=== PATIENT | female | born 1985 | race Caucasian/White ===

== ENCOUNTER 2018-06-24 09:39 | Emergency (ER) | payer BC, OTHER ==
--- OUTSIDE RECORDS SUMMARY | 2018-06-24 09:55 | XMS REPORT | Continuity of Care Document ---
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 Payers Type Date Identification Numbers Payment Provider Subscriber Policy Number: [id number] BS Of BIBI Leigha Costello PayID: [id number] [address] [address] [place] [address] Advance Directives Description No Information Available Problems Description No Information Family History Description No Information Available Social History Type Date Description Comments Sex Unknown Tobacco Use Start: Unknown Patient has never smoked Smoking Status Reviewed: 04/25/18 Patient has never smoked Allergies, Adverse Reactions, Alerts Date Description Reaction Status Severity Comments 04/25/2018 Sulfa Antibiotics Active Medications Medication Date Status Form Strength Qnty SIG Indications Ordering Provider Omeprazole Active Capsules 40mg 30caps [address] by marbin Taveras, daily 30 DO minutes before meals. Ibuprofen 00/00/0 Active Tablets 800mg Unknown 000 Polyethylene 00/00/0 Active Powder 3350NF Cavanaugh, Glycol 3350 000 MD Ira Immunizations Description No Information Available Vital Signs Date Vital Result Comment 04/25/2018 1:39pm Height 68 inches 5'8" Weight 268.00 lb BP Systolic 139 mmHg BP Diastolic 83 mmHg Heart Rate 69 /min BMI (Body Mass Index) 40.7 kg/m2 Results Test Date Facility Test Result H/L Range Note Laboratory test 05/21/2018 [facility] [place] Clotest SEE RESULT 1, 2 finding BELOW Laboratory test 05/21/2018 [facility] [place] Surgical SEE RESULT 3, 4 finding Pathology BELOW 1 [id number] SEE RESULT BELOW Name: LEIGHA COSTELLO : [address]: Parth Taveras DO Acct: [id number] Unit: [id number] AGE: 33 Location: [facility] Re05/21/18 SEX: F Status: DEP REF SPEC: [id number] PIEDAD: 05/21/18-1149 [facility] DR: Parth Taveras DO REQ: [id number] RECD: 05/21/18 STATUS: HIREN MCALLISTER DR: Stacia Silva TETRYL NITRATOR OPERATOR _ SOURCE: GAS ANTRUM SPDESC: ORDERED: Clotest COMMENTS: [id number] Procedure Result Reported Site Clotest Final 05/22/18- 825 ML Clotest Negative * ML - Main Lab . END OF REPORT DEPARTMENT OF PATHOLOGY, [address] [place] [address] Cedric Yanes M.D. Director [facility] # [id number] 3 [id number] SEE RESULT BELOW Name: LEIGHA COSTELLO José : [address]: Parth Taveras DO Acct: [id number] Unit: [id number] AGE: 33 Location: [facility] Re05/21/18 SEX: F Status: DEP REF SPEC: [id number] PIEDAD: 05/21/18-1133 [facility] DR: Parth Taveras DO REQ: [id number] RECD: 05/21/18 STATUS: JANET MCALLISTER DR: Teodoro Silva TETRYL NITRATOR OPERATOR _ ORDERED: LEVEL 4/3 COMMENTS: [id number] FINAL DIAGNOSIS 1. Small bowel, duodenum, biopsy: -- Small bowel mucosa with normal villous architecture and no significant pathologic abnormality. 2. Stomach, body, biopsies: -- Gastric fundic gland mucosa with mild diffuse chronic inflammation. -- No active gastritis nor Helicobacter pylori-like organisms are identified. 3. Distal esophagus, biopsy: -- Gastroesophageal transition zone mucosa with moderate reflux esophagitis. -- Gastric Cardia-type mucosa with focal acute and chronic inflammation. -- No goblet cell/intestinal metaplasia identified Comment: Immunochemical stains for Helicobacter pylori-like organisms are pending on parts 2 and 3 and will be reported in an addendum. CLINICAL HISTORY Pre-bariatric; reflux CONTINUED ON NEXT PAGE DEPARTMENT OF PATHOLOGY, [address] [place] [address] Cedric Yanes M.D. Director [facility] # [id number] RUN DATE: 05/22/18 [facility] LAB LIVE PAGE 2 Patient: SIMONA COSTELLOMARGARITA Kumar [id number] (Continued) PRE-OPERATIVE DIAGNOSIS (Continued) PRE-OPERATIVE DIAGNOSIS 1. Rule out celiac, 2. Rule out gastritis POST-OPERATIVE DIAGNOSIS EGD: esophagus - possible Ramirez?s; gastroesophageal junction 40 cm; sliding hiatal hernia; gastric - gastritis biopsy/ ASIA test; duodenum - normal, biopsy GROSS DESCRIPTION 1. The specimen is received in formalin labeled, Biopsy Duodenum, and consists of a 0.5 x 0.3 x 0.3 cm speckled sorto-pink irregular to polypoid soft tissue fragment, which is entirely submitted in one cassette. 2. The specimen is received in formalin labeled, Biopsy Gastric Body, and consists of two sorto red irregular to polypoid soft tissue fragments averaging 0.5 x 0.3 x 0.2 cm, which are entirely submitted in one cassette. 3. The specimen is received in formalin labeled, Biopsy Distal Esophagus, and consists of two sorto-pink irregular to polypoid soft tissue fragments measuring 0.5 x 0.3 x 0.2 cm and 0.7 by up to 0.2 x 0.1 cm, which are entirely submitted in one cassette Signed by and Reported on: Cedric Yanes MD 1024 END OF REPORT DEPARTMENT OF PATHOLOGY, [address] [place] [address] Cedric Yanes M.D. Director [facility] # [id number] SEE RESULT BELOW Name: LEIGHA COSTELLO : [address]: Parth Taveras DO Acct: [id number] Unit: [id number] AGE: 33 Location: [facility] Re05/21/18 SEX: F Status: DEP REF SPEC: [id number] PIEDAD: 05/21/[address]: Parth Taveras DO REQ: [id number] RECD: 05/21/18 STATUS: JANET MCALLISTER DR: Teodoro Silva TETRYL NITRATOR OPERATOR _ ORDERED: LEVEL 4/3 COMMENTS: [id number] FINAL DIAGNOSIS 1. Small bowel, duodenum, biopsy: -- Small bowel mucosa with normal villous architecture and no significant pathologic abnormality. 2. Stomach, body, biopsies: -- Gastric fundic gland mucosa with mild diffuse chronic inflammation. -- No active gastritis nor Helicobacter pylori-like organisms are identified. 3. Distal esophagus, biopsy: -- Gastroesophageal transition zone mucosa with moderate reflux esophagitis. -- Gastric Cardia-type mucosa with focal acute and chronic inflammation. -- No goblet cell/intestinal metaplasia identified Comment: Immunochemical stains for Helicobacter pylori-like organisms are pending on parts 2 and 3 and will be reported in an addendum. CLINICAL HISTORY Pre-bariatric; reflux CONTINUED ON NEXT PAGE DEPARTMENT OF PATHOLOGY, [address] [place] [address] Cedric Yanes M.D. Director [facility] # [id number] RUN DATE: 05/22/18 [facility] LAB LIVE PAGE 2 Patient: LEIGHA COSTELLO [id number] (Continued) PRE-OPERATIVE DIAGNOSIS (Continued) PRE-OPERATIVE DIAGNOSIS 1. Rule out celiac, 2. Rule out gastritis POST-OPERATIVE DIAGNOSIS EGD: esophagus - possible Ramirez?s; gastroesophageal junction 40 cm; sliding hiatal hernia; gastric - gastritis biopsy/ ASIA test; duodenum - normal, biopsy GROSS DESCRIPTION 1. The specimen is received in formalin labeled, Biopsy Duodenum, and consists of a 0.5 x 0.3 x 0.3 cm speckled sorto-pink irregular to polypoid soft tissue fragment, which is entirely submitted in one cassette. 2. The specimen is received in formalin labeled, Biopsy Gastric Body, and consists of two sorto red irregular to polypoid soft tissue fragments averaging 0.5 x 0.3 x 0.2 cm, which are entirely submitted in one cassette. 3. The specimen is received in formalin labeled, Biopsy Distal Esophagus, and consists of two sorto-pink irregular to polypoid soft tissue fragments measuring 0.5 x 0.3 x 0.2 cm and 0.7 by up to 0.2 x 0.1 cm, which are entirely submitted in one cassette Signed by and Reported on: Cedric Yanes MD 1024 END OF REPORT DEPARTMENT OF PATHOLOGY, [address] [place] [address] Cedric Yanes M.D. Director [facility] # [id number] SEE RESULT BELOW Name: LEIGHA COSTELLO : [address]: Parth Taveras DO Acct: [id number] Unit: [id number] AGE: 33 Location: [facility] Re05/21/18 SEX: F Status: DEP REF SPEC: [id number] PIEDAD: 05/21/18-1132 [facility] DR: Parth Taveras DO REQ: [id number] RECD: 05/21/18 STATUS: JANET MCALLISTER DR: Teodoro Silva TETRYL NITRATOR OPERATOR _ ORDERED: LEVEL 4/3, IMMUNO-FIRST/2 COMMENTS: [id number] Immunohistochemical stains, with appropriately reacting controls, for H. pylori were performed on sections cut from specimen 2 and 3 and are negative for Helicobacter organisms. Addendum Signed (signature on file) Norma Hernández MD 1004 FINAL DIAGNOSIS 1. Small bowel, duodenum, biopsy: -- Small bowel mucosa with normal villous architecture and no significant pathologic abnormality. 2. Stomach, body, biopsies: -- Gastric fundic gland mucosa with mild diffuse chronic inflammation. -- No active gastritis nor Helicobacter pylori-like organisms are identified. 3. Distal esophagus, biopsy: -- Gastroesophageal transition zone mucosa with moderate reflux esophagitis. -- Gastric Cardia-type mucosa with focal acute and chronic inflammation. -- No goblet cell/intestinal metaplasia identified Comment: Immunochemical stains for Helicobacter pylori-like organisms are pending on parts 2 and 3 and will be reported in an addendum. CONTINUED ON NEXT PAGE DEPARTMENT OF PATHOLOGY, [address] [place] [address] Cedric Yanes M.D. Director [facility] # [id number] RUN DATE: 05/23/18 [facility] LAB LIVE PAGE 2 Patient: LEIGHA COSTELLO [id number] (Continued) CLINICAL HISTORY (Continued) CLINICAL HISTORY Pre-bariatric; reflux PRE-OPERATIVE DIAGNOSIS 1. Rule out celiac, 2. Rule out gastritis POST-OPERATIVE DIAGNOSIS EGD: esophagus - possible Ramirez?s; gastroesophageal junction 40 cm; sliding hiatal hernia; gastric - gastritis biopsy/ ASIA test; duodenum - normal, biopsy GROSS DESCRIPTION 1. The specimen is received in formalin labeled, Biopsy Duodenum, and consists of a 0.5 x 0.3 x 0.3 cm speckled sorto-pink irregular to polypoid soft tissue fragment, which is entirely submitted in one cassette. 2. The specimen is received in formalin labeled, Biopsy Gastric Body, and consists of two sorto red irregular to polypoid soft tissue fragments averaging 0.5 x 0.3 x 0.2 cm, which are entirely submitted in one cassette. 3. The specimen is received in formalin labeled, Biopsy Distal Esophagus, and consists of two sorto-pink irregular to polypoid soft tissue fragments measuring 0.5 x 0.3 x 0.2 cm and 0.7 by up to 0.2 x 0.1 cm, which are entirely submitted in one cassette Signed by and Reported on: Cedric Yanes MD 1024 END OF REPORT DEPARTMENT OF PATHOLOGY, [address] [place] [address] Cedric Yanes M.D. Director [facility] # [id number] SEE RESULT BELOW Name: LEIGHA COSTELLO : [address]: Parth Taveras DO Acct: [id number] Unit: [id number] AGE: 33 Location: [facility] Re05/21/18 SEX: F Status: DEP REF SPEC: [id number] PIEDAD: 05/21/18-[address]: Parth Taveras DO REQ: [id number] RECD: 05/21/18 STATUS: JANET MCALLISTER DR: Teodoro Silva TETRYL NITRATOR OPERATOR _ ORDERED: LEVEL 4/3, IMMUNO-FIRST/2 COMMENTS: [id number] Immunohistochemical stains, with appropriately reacting controls, for H. pylori were performed on sections cut from specimen 2 and 3 and are negative for Helicobacter organisms. Addendum Signed (signature on file) Norma Hernández MD 1004 FINAL DIAGNOSIS 1. Small bowel, duodenum, biopsy: -- Small bowel mucosa with normal villous architecture and no significant pathologic abnormality. 2. Stomach, body, biopsies: -- Gastric fundic gland mucosa with mild diffuse chronic inflammation. -- No active gastritis nor Helicobacter pylori-like organisms are identified. 3. Distal esophagus, biopsy: -- Gastroesophageal transition zone mucosa with moderate reflux esophagitis. -- Gastric Cardia-type mucosa with focal acute and chronic inflammation. -- No goblet cell/intestinal metaplasia identified Comment: Immunochemical stains for Helicobacter pylori-like organisms are pending on parts 2 and 3 and will be reported in an addendum. CONTINUED ON NEXT PAGE DEPARTMENT OF PATHOLOGY, [address] [place] [address] Cedric Yanes M.D. Director [facility] # [id number] RUN DATE: 05/23/18 [facility] LAB LIVE PAGE 2 Patient: MANOHARSIMONALEIGHA L [id number] (Continued) CLINICAL HISTORY (Continued) CLINICAL HISTORY Pre-bariatric; reflux PRE-OPERATIVE DIAGNOSIS 1. Rule out celiac, 2. Rule out gastritis POST-OPERATIVE DIAGNOSIS EGD: esophagus - possible Ramirez?s; gastroesophageal junction 40 cm; sliding hiatal hernia; gastric - gastritis biopsy/ ASIA test; duodenum - normal, biopsy GROSS DESCRIPTION 1. The specimen is received in formalin labeled, Biopsy Duodenum, and consists of a 0.5 x 0.3 x 0.3 cm speckled sorto-pink irregular to polypoid soft tissue fragment, which is entirely submitted in one cassette. 2. The specimen is received in formalin labeled, Biopsy Gastric Body, and consists of two sorto red irregular to polypoid soft tissue fragments averaging 0.5 x 0.3 x 0.2 cm, which are entirely submitted in one cassette. 3. The specimen is received in formalin labeled, Biopsy Distal Esophagus, and consists of two sorto-pink irregular to polypoid soft tissue fragments measuring 0.5 x 0.3 x 0.2 cm and 0.7 by up to 0.2 x 0.1 cm, which are entirely submitted in one cassette Signed by and Reported on: Cedric Yanes MD 1024 END OF REPORT DEPARTMENT OF PATHOLOGY, [address] [place] [address] Cedric Yanes M.D. Director [facility] # [id number] Procedures Description No Information Available Encounters Type Date Location Provider Dx Diagnosis Office Visit 04/25/2018 Gastroenterology Parth Taveras, Z01.818 Encounter for other 3:15p [facility] DO preprocedural examination K21.9 Gastro-esophageal reflux disease without esophagitis E66.01 Morbid (severe) obesity due to excess calories K59.00 Constipation, unspecified Z68.41 Body mass index (BMI) 40.0-44.9, adult Plan of Treatment 04/25/2018 - Parth Taveras, DOZ01.818 Encounter for other preprocedural jclvbzabkurK20.9 Gastro-esophageal reflux disease without esophagitisComments: RISKS AND BENEFITS OF THE PROCEDURE WERE DISCUSSED WITH PATIENT.E66.01 Morbid ( severe) obesity due to excess opkamnfnF17.00 Constipation, jvhuvwvmptfR01.41 Body mass index (BMI) 40.0-44.9, adult
--- OUTSIDE RECORDS SUMMARY | 2018-06-24 09:55 | XMS REPORT | Continuity of Care Document ---
:1985 External Reference #:[id number] Author Name Parth Taveras, Address [address] [place] [id number] Care Team Providers Name Role Phone Teodoro Selby MD Care Team Information Periodontal Assistant Unavailable Payers Type Date Identification Numbers Payment Provider Subscriber Policy Number: [id number] BS Of BIBI Leigha Costello PayID: [id number] [address] [address] [place] [address] Advance Directives Description No Information Available Problems [...] Result H/L Range Note Laboratory test 05/21/2018 [facility] [place] Clotest SEE RESULT 1, 2 finding BELOW Laboratory test 05/21/2018 [facility] [place] Surgical SEE RESULT 3, 4 finding Pathology BELOW 1 [id number] SEE RESULT BELOW Name: LEIGHA COSTELLO : [address]: Parth Tavears DO Acct: [id number] Unit: [id number] AGE: 33 Location: [facility] Re05/21/18 SEX: F Status: DEP REF SPEC: [id number] PIEDAD: 05/21/18-[address] [facility] [address]: Parth Taveras DO REQ: [id number] RECD: 05/21/18 STATUS: HIREN MCALLISTER DR: Stacia Silva EMERGENCY MEDCL EMT _ SOURCE: GAS ANTRUM SPDESC: ORDERED: Clotest COMMENTS: [id number] Procedure Result Reported Site Clotest Final 05/22/18- 825 ML Clotest Negative * ML - Main Lab . END OF REPORT DEPARTMENT OF PATHOLOGY, [address] [place] [address] Cedric Yanes M.D. Director [facility] # [id number] 3 [id number] SEE RESULT BELOW Name: LEIGHA COSTELLO José : [address]: Parth Taveras DO Acct: [id number] Unit: [id number] AGE: 33 Location: [facility] Re05/21/18 SEX: F Status: DEP REF SPEC: [id number] PIEDAD: 05/21/18-[address] [facility] [address]: Parth Taveras DO REQ: [id number] RECD: 05/21/18 STATUS: JANET MCALLISTER DR: Teodoro Silva EMERGENCY MEDCL EMT _ ORDERED: LEVEL 4/3 COMMENTS: [id number] FINAL DIAGNOSIS 1. Small bowel, duodenum, biopsy: [...] CONTINUED ON NEXT PAGE DEPARTMENT OF PATHOLOGY, [address] [place] [address] Cedric Yanes M.D. Director [facility] # [id number] RUN DATE: 05/22/18 [facility] LAB LIVE PAGE 2 Patient: SIMONA COSTELLOMARGARITA Kumar [id number] (Continued) PRE-OPERATIVE DIAGNOSIS (Continued) PRE-OPERATIVE DIAGNOSIS 1. [...] 1024 END OF REPORT DEPARTMENT OF PATHOLOGY, [address] [place] [address] Cedric Yanes M.D. Director [facility] # [id number] SEE RESULT BELOW Name: LEIGHA COSTELLO : [address]: Parth Taveras DO Acct: [id number] Unit: [id number] AGE: 33 Location: [facility] Re05/21/18 SEX: F Status: DEP REF SPEC: [id number] PIEDAD: 05/21/[address]: Parth Taveras DO REQ: [id number] RECD: 05/21/18 STATUS: JANET MCALLISTER DR: Teodoro Silva EMERGENCY MEDCL EMT _ ORDERED: LEVEL 4/3 COMMENTS: [id number] FINAL DIAGNOSIS 1. Small bowel, duodenum, biopsy: [...] CONTINUED ON NEXT PAGE DEPARTMENT OF PATHOLOGY, [address] [place] [address] Cedric Yanes M.D. Director [facility] # [id number] RUN DATE: 05/22/18 [facility] LAB LIVE PAGE 2 Patient: LEIGHA COSTELLO [id number] (Continued) PRE-OPERATIVE DIAGNOSIS (Continued) PRE-OPERATIVE DIAGNOSIS 1. [...] 1024 END OF REPORT DEPARTMENT OF PATHOLOGY, [address] [place] [address] Cedric Yanes M.D. Director [facility] # [id number] SEE RESULT BELOW Name: LEIGHA COSTELLO : [address]: Parth Taveras DO Acct: [id number] Unit: [id number] AGE: 33 Location: [facility] Re05/21/18 SEX: F Status: DEP REF SPEC: [id number] PIEDAD: 05/21/18-[address] [facility] [address]: Parth Taveras DO REQ: [id number] RECD: 05/21/18 STATUS: JANET MCALLISTER DR: Teodoro Silva EMERGENCY MEDCL EMT _ ORDERED: LEVEL 4/3, IMMUNO-FIRST/2 COMMENTS: [id number] Immunohistochemical stains, with appropriately reacting controls, for [...] CONTINUED ON NEXT PAGE DEPARTMENT OF PATHOLOGY, [address] [place] [address] Cedric Yanes M.D. Director [facility] # [id number] RUN DATE: 05/23/18 [facility] LAB LIVE PAGE 2 Patient: LEIGHA COSTELLO [id number] (Continued) CLINICAL HISTORY (Continued) CLINICAL HISTORY Pre-bariatric; [...] 0.5 x 0.3 x 0.3 cm speckled sorot-pink irregular to polypoid soft tissue fragment, which [...] 1024 END OF REPORT DEPARTMENT OF PATHOLOGY, [address] [place] [address] Cedric Yanes M.D. Director [facility] # [id number] SEE RESULT BELOW Name: LEIGHA COSTELLO : [address]: Parth Taveras DO Acct: [id number] Unit: [id number] AGE: 33 Location: [facility] Re05/21/18 SEX: F Status: DEP REF SPEC: [id number] PIEDAD: 05/21/18-[address]: Parth Taveras DO REQ: [id number] RECD: 05/21/18 STATUS: JANET MCALLISTER DR: Teodoro Silva EMERGENCY MEDCL EMT _ ORDERED: LEVEL 4/3, IMMUNO-FIRST/2 COMMENTS: [id number] Immunohistochemical stains, with appropriately reacting controls, for [...] CONTINUED ON NEXT PAGE DEPARTMENT OF PATHOLOGY, [address] [place] [address] Cedric Yanes M.D. Director [facility] # [id number] RUN DATE: 05/23/18 [facility] LAB LIVE PAGE 2 Patient: MANOHARSIMONALEIGHA L [id number] (Continued) CLINICAL HISTORY (Continued) CLINICAL HISTORY Pre-bariatric; [...] 1024 END OF REPORT DEPARTMENT OF PATHOLOGY, [address] [place] [address] Cedric Yanes M.D. Director [facility] # [id number] Procedures Date Code Description Status 05/21/2018 20021 Moderate Sedation Services; Same Phys Intl 15 Mins; PT >=5 Completed Years 05/21/2018 11438 EGD+Biopsy Single Or Multiple Completed Encounters Type Date Location Provider Dx Diagnosis Office Visit 04/25/2018 Gastroenterology Parth Taveras, Z01.818 Encounter for other 3:15p [facility] preprocedural examination K21.9 Gastro-esophageal reflux disease without esophagitis E66.01 Morbid (severe) obesity due to excess calories K59.00 Constipation, unspecified Z68.41 Body mass index (BMI) 40.0-44.9, adult Plan of Treatment Future Appointment(s):09/01/2018 10:00 am - Parth Taveras DO at Gastroenterology [facility]04/25/2018 - Parth Taveras DOZ01.818 Encounter for other preprocedural zjtqcvfgvazY79.9 Gastro-esophageal reflux disease without esophagitisComments:RISKS AND BENEFITS OF THE PROCEDURE WERE DISCUSSED WITH PATIENT.E66.01 Morbid (severe) obesity due to excess amcabbbdT87.00 Constipation, twbzdijdcyzD94.41 Body mass index (BMI) 40.0-44.9, adult
--- OUTSIDE RECORDS SUMMARY | 2018-06-24 09:55 | XMS REPORT | Continuity of Care Document ---
:1985 External Reference #:[id number] Author Name Parth Taveras, Address [address] [place] [phone] Care Team Providers Name Role Phone Teodoro Selby MD Care Team Information Pet Care Associate Unavailable Payers Type Date Identification Numbers Payment Provider Subscriber Policy Number: [id number] BS Of BIBI Leigha Costello PayID: [id number] [address] [address] [place] [address] Advance Directives Description No Information Available Problems [...] Result H/L Range Note Laboratory test 05/21/2018 [facility] SEE RESULT 1, 2 finding BELOW Laboratory test 05/21/2018 [facility] [place] SEE RESULT 3, 4 finding Pathology BELOW 1 [id number] SEE RESULT BELOW Name: LEIGHA COSTELLO : [address]: Parth Taveras DO Acct: [id number] Unit: [id number] AGE: 33 Location: [facility] Re05/21/18 SEX: F Status: DEP REF SPEC: [id number] [place]ED[place]: 05/21/18-1149 [facility] DR: Parth Taveras DO REQ: [id number] RECD: 05/21/18 STATUS: HIREN MCALLISTER DR: Stacia Silva MEDICAID PLAN COMPLIANCE DIRECTOR _ SOURCE: GAS ANTRUM SPDESC: ORDERED: Clotest COMMENTS: [id number] Procedure Result Reported Site Clotest Final 05/22/18- 825 ML Clotest Negative * ML - Main Lab . END OF REPORT DEPARTMENT OF PATHOLOGY, [address] [place] [address] Cedric Yanes M.D. Director [facility] # [id number] 3 [id number] SEE RESULT BELOW Name: LEIGHA COSTELLO José : [address]: Parth Taveras DO Acct: [id number] Unit: [id number] AGE: 33 Location: [facility] Re05/21/18 SEX: F Status: DEP REF SPEC: [id number] PIED[place]: 05/21/18-1133 [facility] DR: Parth Taveras DO REQ: [id number] RECD: 05/21/18 STATUS: JANET MCALLISTER DR: Teodoro Silva MEDICAID PLAN COMPLIANCE DIRECTOR _ ORDERED: LEVEL 4/3 COMMENTS: [id number] FINAL DIAGNOSIS 1. Small bowel, duodenum, biopsy: [...] CONTINUED ON NEXT PAGE DEPARTMENT OF PATHOLOGY, [address] [place] [address] Cedric Yanes M.D. Director [facility] # [id number] RUN DATE: 05/22/18 [facility] LAB LIVE PAGE 2 Patient: SIMONA COSTELLOMARGARITA Kumar [id number] (Continued) PRE-OPERATIVE DIAGNOSIS (Continued) PRE-OPERATIVE DIAGNOSIS 1. [...] 1024 END OF REPORT DEPARTMENT OF PATHOLOGY, [address] [place] [address] Cedric Yanes M.D. Director [facility] # [id number] SEE RESULT BELOW Name: LEIGHA COSTELLO : [address]: Parth Taveras DO Acct: [id number] Unit: [id number] AGE: 33 Location: [facility] Re05/21/18 SEX: F Status: DEP REF SPEC: [id number] PIEDAD: 05/21/[address]: Parth Taveras DO REQ: [id number] RECD: 05/21/18 STATUS: JANET MCALLISTER DR: Teodoro Silva MEDICAID PLAN COMPLIANCE DIRECTOR _ ORDERED: LEVEL 4/3 COMMENTS: [id number] FINAL DIAGNOSIS 1. Small bowel, duodenum, biopsy: [...] CONTINUED ON NEXT PAGE DEPARTMENT OF PATHOLOGY, [address] [place] [address] Cedric Yanes M.D. Director [facility] # [id number] RUN DATE: 05/22/18 [facility] LAB LIVE PAGE 2 Patient: LEIGHA COSTELLO [id number] (Continued) PRE-OPERATIVE DIAGNOSIS (Continued) PRE-OPERATIVE DIAGNOSIS 1. [...] 1024 END OF REPORT DEPARTMENT OF PATHOLOGY, [address] [place] [address] Cedric Yanes M.D. Director [facility] # [id number] SEE RESULT BELOW Name: LEIGHA COSTELLO : [address]: Parth Taveras DO Acct: [id number] Unit: [id number] AGE: 33 Location: [facility] Re05/21/18 SEX: F Status: DEP REF SPEC: [id number] PIEDAD: 05/21/18-1132 [facility] DR: Parth Taveras DO REQ: [id number] RECD: 05/21/18 STATUS: JANET MCALLISTER DR: Teodoro Silva MEDICAID PLAN COMPLIANCE DIRECTOR _ ORDERED: LEVEL 4/3, IMMUNO-FIRST/2 COMMENTS: [id number] Immunohistochemical stains, with appropriately reacting controls, for [...] CONTINUED ON NEXT PAGE DEPARTMENT OF PATHOLOGY, [address] [place] [address] Cedric Yanes M.D. Director [facility] # [id number] RUN DATE: 05/23/18 [facility] LAB LIVE PAGE 2 Patient: LEIGHA COSTELLO [id number] (Continued) CLINICAL HISTORY (Continued) CLINICAL HISTORY Pre-bariatric; [...] 1024 END OF REPORT DEPARTMENT OF PATHOLOGY, [address] [place] [address] Cedric Yanes M.D. Director [facility] # [id number] SEE RESULT BELOW Name: LEIGHA COSTELLO : [address]: Parth Taveras DO Acct: [id number] Unit: [id number] AGE: 33 Location: [facility] Re05/21/18 SEX: F Status: DEP REF SPEC: [id number] PIEDAD: 05/21/18-[address]: Parth Taveras DO REQ: [id number] RECD: 05/21/18 STATUS: JANET MCALLISTER DR: Teodoro Silva MEDICAID PLAN COMPLIANCE DIRECTOR _ ORDERED: LEVEL 4/3, IMMUNO-FIRST/2 COMMENTS: [id number] Immunohistochemical stains, with appropriately reacting controls, for [...] CONTINUED ON NEXT PAGE DEPARTMENT OF PATHOLOGY, [address] [place] [address] Cedric Yanes M.D. Director [facility] # [id number] RUN DATE: 05/23/18 [facility] LAB LIVE PAGE 2 Patient: MANOHARSIMONALEIGHA L [id number] (Continued) CLINICAL HISTORY (Continued) CLINICAL HISTORY Pre-bariatric; [...] 1024 END OF REPORT DEPARTMENT OF PATHOLOGY, [address] [place] [address] Cedric Yanes M.D. Director [facility] # [id number] Procedures Description No Information Available Encounters Type Date Location Provider Dx Diagnosis Office Visit 04/25/2018 Gastroenterology Parth Taveras, Z01.818 Encounter for other 3:15p [facility] DO preprocedural examination K21.9 Gastro-esophageal reflux disease without esophagitis E66.01 Morbid (severe) obesity due to excess calories K59.00 Constipation, unspecified Z68.41 Body mass index (BMI) 40.0-44.9, adult Plan of Treatment 04/25/2018 - Parth Taveras, DOZ01.818 Encounter for other preprocedural qvyknrfrjgbG93.9 Gastro-esophageal reflux disease without esophagitisComments: RISKS AND BENEFITS OF THE PROCEDURE WERE DISCUSSED WITH PATIENT.E66.01 Morbid ( severe) obesity due to excess xijrxjfbD49.00 Constipation, tfbmkxltftyR51.41 Body mass index (BMI) 40.0-44.9, adult
--- OUTSIDE RECORDS SUMMARY | 2018-06-24 09:55 | XMS REPORT | Continuity of Care Document ---
:1985 External Reference #:[id number] Author Name Parth Taveras, Address [address] [place] [phone] Care Team Providers Name Role Phone Teodoro Selby MD Care Team Information Gaming Investigator Unavailable Payers Type Date Identification Numbers Payment Provider Subscriber Policy Number: [id number] BS Of BIBI Leigha Costello PayID: [id number] [address] [address] [place] [address] Advance Directives Description No Information Available Problems [...] Result H/L Range Note Laboratory test 05/21/2018 [facility] Clotest SEE RESULT 1, 2 finding BELOW Laboratory test 05/21/2018 [facility] Surgical SEE RESULT 3, 4 finding Pathology BELOW 1 [id number] 2 SEE RESULT BELOW Name: LEIGHA COSTELLO : [address]: Parth Taveras DO Acct: [id number] Unit: [id number] AGE: 33 Location: [facility] Re05/21/18 SEX: F Status: DEP REF SPEC: [id number] PIEDAD: 05/21/18-[address] [facility] [address]: Parth Taveras DO REQ: [id number] RECD: 05/21/18 STATUS: HIREN MCALLISTER DR: Stacia Silva THERAPIST OCCUPATIONAL _ SOURCE: GAS ANTRUM SPDESC: ORDERED: Clotest COMMENTS: [id number] Procedure Result Reported Site Clotest Final 05/22/18- 825 ML Clotest Negative * ML - Main Lab . END OF REPORT DEPARTMENT OF PATHOLOGY, [address] [place] [address] Cedric Yanes M.D. Director [facility] # [id number] 3 [id number] SEE RESULT BELOW Name: LEIGHA COSTELLO José : [address]: Parth Taveras DO Acct: [id number] Unit: [id number] AGE: 33 Location: [facility] Re05/21/18 SEX: F Status: DEP REF SPEC: [id number] PIEDAD: 05/21/18-[address] [facility] [address]: Parth Taveras DO REQ: [id number] RECD: 05/21/18 STATUS: JANET MCALLISTER DR: Teodoro Silva THERAPIST OCCUPATIONAL _ ORDERED: LEVEL 4/3 COMMENTS: [id number] FINAL DIAGNOSIS 1. Small bowel, duodenum, biopsy: [...] CONTINUED ON NEXT PAGE DEPARTMENT OF PATHOLOGY, [address] [place] [address] Cedric Yanes M.D. Director [facility] # [id number] RUN DATE: 05/22/18 [facility] LAB LIVE PAGE 2 Patient: SIMONA COSTELLOMARGARITA Kumar [id number] (Continued) PRE-OPERATIVE DIAGNOSIS (Continued) PRE-OPERATIVE DIAGNOSIS 1. [...] 1024 END OF REPORT DEPARTMENT OF PATHOLOGY, [address] [place] [address] Cedric Yanes M.D. Director [facility] # [id number] SEE RESULT BELOW Name: LEIGHA COSTELLO : [address]: Parth Taveras DO Acct: [id number] Unit: [id number] AGE: 33 Location: [facility] Re05/21/18 SEX: F Status: DEP REF SPEC: [id number] PIEDAD: 05/21/[address]: Parth Taveras DO REQ: [id number] RECD: 05/21/18 STATUS: JANET MCALLISTER DR: Teodoro Silva THERAPIST OCCUPATIONAL _ ORDERED: LEVEL 4/3 COMMENTS: [id number] FINAL DIAGNOSIS 1. Small bowel, duodenum, biopsy: [...] CONTINUED ON NEXT PAGE DEPARTMENT OF PATHOLOGY, [address] [place] [address] Cedric Yanes M.D. Director [facility] # [id number] RUN DATE: 05/22/18 [facility] LAB LIVE PAGE 2 Patient: LEIGHA COSTELLO [id number] (Continued) PRE-OPERATIVE DIAGNOSIS (Continued) PRE-OPERATIVE DIAGNOSIS 1. [...] 1024 END OF REPORT DEPARTMENT OF PATHOLOGY, [address] [place] [address] Cedric Yanes M.D. Director [facility] # [id number] SEE RESULT BELOW Name: LEIGHA COSTELLO : [address]: Parth Taveras DO Acct: [id number] Unit: [id number] AGE: 33 Location: [facility] Re05/21/18 SEX: F Status: DEP REF SPEC: [id number] PIEDAD: 05/21/18-[address] [facility] [address]: Parth Taveras DO REQ: [id number] RECD: 05/21/18 STATUS: JANET MCALLISTER DR: Teodoro Silva THERAPIST OCCUPATIONAL _ ORDERED: LEVEL 4/3, IMMUNO-FIRST/2 COMMENTS: [id number] Immunohistochemical stains, with appropriately reacting controls, for H. pylori were performed on sections cut from specimen 2 and 3 and are negative for Helicobacter organisms. Addendum Signed (signature on file) Noram Hernández MD 1004 FINAL DIAGNOSIS 1. Small [...] CONTINUED ON NEXT PAGE DEPARTMENT OF PATHOLOGY, [address] [place] [address] Cedric Yanes M.D. Director [facility] # [id number] RUN DATE: 05/23/18 [facility] LAB LIVE PAGE 2 Patient: LEIGHA COSETLLO [id number] (Continued) CLINICAL HISTORY (Continued) CLINICAL HISTORY Pre-bariatric; [...] 1024 END OF REPORT DEPARTMENT OF PATHOLOGY, [address] [place] [address] Cedric Yanes M.D. Director [facility] # [id number] SEE RESULT BELOW Name: LEIGHA COSTELLO : [address]: Parth Taveras DO Acct: [id number] Unit: [id number] AGE: 33 Location: [facility] Re05/21/18 SEX: F Status: DEP REF SPEC: [id number] PIEDAD: 05/21/18-[address]: Parth Taveras DO REQ: [id number] RECD: 05/21/18 STATUS: JANET MCALLISTER DR: Teodoro Silva THERAPIST OCCUPATIONAL _ ORDERED: LEVEL 4/3, IMMUNO-FIRST/2 COMMENTS: [id number] Immunohistochemical stains, with appropriately reacting controls, for [...] CONTINUED ON NEXT PAGE DEPARTMENT OF PATHOLOGY, [address] [place] [address] Cedric Yanes M.D. Director [facility] # [id number] RUN DATE: 05/23/18 [facility] LAB LIVE PAGE 2 Patient: MANOHARSIMONALEIGHA L [id number] (Continued) CLINICAL HISTORY (Continued) CLINICAL HISTORY Pre-bariatric; [...] 1024 END OF REPORT DEPARTMENT OF PATHOLOGY, [address] [place] [address] Cedric Yanes M.D. Director [facility] # [id number] Procedures Date Code Description Status 05/21/2018 75250 Moderate Sedation Services; Same Phys Intl 15 Mins; PT >=5 Completed Years 05/21/2018 85116 EGD+Biopsy Single Or Multiple Completed Encounters Type Date Location Provider Dx Diagnosis Office Visit 04/25/2018 Gastroenterology Parth Taveras, Z01.818 Encounter for other 3:15p [facility] preprocedural examination K21.9 Gastro-esophageal reflux disease without esophagitis E66.01 Morbid (severe) obesity due to excess calories K59.00 Constipation, unspecified Z68.41 Body mass index (BMI) 40.0-44.9, adult Plan of Treatment Future Appointment(s):09/01/2018 10:00 am - Parth Taveras DO at Gastroenterology [facility]04/25/2018 - Parth Taveras DOZ01.818 Encounter for other preprocedural qtjeninkkjzV91.9 Gastro-esophageal reflux disease without esophagitisComments:RISKS AND BENEFITS OF THE PROCEDURE WERE DISCUSSED WITH PATIENT.E66.01 Morbid (severe) obesity due to excess kppkhnsrJ32.00 Constipation, gvzqpxyemjiD88.41 Body mass index (BMI) 40.0-44.9, adult
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
[2018-06-24 12:50] LABS: Barbiturates Urine Screen None Detected (None Detect); Benzodiazepine Urine Screen None Detected (None Detect); Urine Cannabinoids Screen None Detected (None Detect)
[2018-06-24 13:00] VITALS: BP 130/93
== END 2018-06-24 12:59 | disposition home or self-care (01) ==
LOC: ED 09:39
DX: S49.91XA Unspecified injury of right shoulder and upper arm, initial encounter (principal); R51 Headache; Z88.2 Allergy status to sulfonamides; M25.511 Pain in right shoulder; V47.6XXA Car passenger injured in collision with fixed or stationary object in traffic accident, initial encounter; Y92.9 Unspecified place or not applicable
CPT/HCPCS: 36415; 70450; 72125; 72128; 72131; 80307; 80320; 99282; G0480